=== PATIENT | female | born 1975 | race American Indian/Alaskan Native ===

== ENCOUNTER 2017-12-14 09:20 | Emergency (ER) | payer MEDICAID, OTHER, SELFPAY ==
--- NOTE | 2017-12-14 10:02 | ED.CPR ---
HPI - CPR General Chief Complaint: Cardiac Arrest/CPR Stated Complaint: cpr Source: EMS Mode of arrival: EMS Limitations: physical limitation History of Present Illness HPI narrative: Patient has a difficult story to follow. Initial report suggests she was last seen normal at 9pm last evening and then family heard a commotion this morning at 730 am. They report she may have smoked oxycodone. There is also suggestion that maybe she got her kids off to school this morning. No recent illness or injury. Found down and EMS notified. CPR started when rn night arrived. Upon arrival of and [facility] patient was found in a PA arrest and CPR was continued. All in all patient received epinephrine 1 mg x6 prior to her arrival. She did have 2 brief episodes of VFib which were subsequently shocked. Patient received amiodarone 300 mg bolus followed by 150 bolus on the 2nd occurrence. She had peripheral line and a left tibial IO. Airway secured a Isai airway. End-tidal is in the 30s on her arrival with CPR. Code blue activated prior to arrival. All necessary participants in place prior to her arrival. Related Data Previous Rx's Medication Instructions Recorded phenytoin sodium extended 0 PO QDAY #90 cap 02/14/17 [Dilantin Extended] sulfamethoxazole-trimethoprim 1 tab PO BID #10 tab 10/08/17 clonazepam 0.5 mg PO BID #60 tab 10/23/17 Allergies Allergy/AdvReac Type Severity Reaction Status Date / Time codeine [CODEINE] Allergy Intermediate ITCHING Unverified 11/14/17 12:21 meperidine [From DEMEROL] Allergy Intermediate ITCHING Unverified 11/14/17 12:21 hydrocodone [HYDROCODONE] Allergy Unknown Unverified 11/20/17 00:18 Review of Systems Review of Systems Patient is unable to participate in review of systems due to endotracheal tube Constitutional Reports as per HPI Exam Narrative Exam Narrative: Intubated, active CPR. Const General: patient mechanically ventilated Nutritional Appearance: average body habitus [facility] Head: normal to inspection, No hematoma and No laceration Ears: hearing grossly normal bilaterally Nose: external nose normal Face and sinus: normal facial exam Mouth: oral mucosae normal Throat: posterior oropharynx normal Eyes Eyelids: eyelids normal Conjunctivae: conjunctivae normal Pupils: dilated and fixed Neck Neck: normal visual inspection Chest Chest: normal inspection of the chest Other: No obvious trauma Resp Auscultation: clear to auscultation bilaterally Other: Mechanically ventilated. Cardio Pulses: radial pulses not present GI Inspection: normal to inspection Skin General: no rashes or lesions noted, No jaundice and No petechiae Neuro General: not alert, not awake and not oriented x3 Extrem General: normal to inspection [facility] Surgical History Status post tubal ligation (12/24/15) MDM - Cardiac Arrest/CPR Lab Data Result diagrams: 12/14/17 09:27 12/14/17 09:27 Lab Results 12/14/17 Range/Units 09:27 Sodium 135 L (137-145) mmol/L Potassium 3.9 (3.4-5.1) mmol/L Chloride 99.0 (98-107) mmol/L Carbon Dioxide 16.0 L (22-32) mmol/L BUN 6.0 L (7-17) mg/dL Creatinine 1.10 H (0.52-1.04) mg/dL Estimated GFR 55.0 L (>60) mL/min BUN/Creatinine Ratio 5.5 L (6-22) Glucose 416 H (70-100) mg/dL Calcium 7.5 L (8.4-10.2) mg/dL Course Orders Ordered: ED Orders 12/14/17 09:27 Basic Metabolic Panel Stat 12/14/17 09:57 Complete Blood Count AUTO DIFF Stat Reevaluation(s) Reevaluation #1: Immediately on arrival patient was transferred to our cart and monitors. She was in a PEA in the 80s. CPR resumed. Epinephrine administered. Airway swab and endotracheal tube placed by EMS. Confirmed by myself with glide scope. Amiodarone drip administered. Bicarb administered given potential for lengthy down time. Multiple cycles of CPR/brief pulse checks. We visited all H's / T's and no reversible cause noted. Critical Care Time Critical Care Time: Yes Total Critical Care Time: 45 Attestation: Critical care time is separate from other billable procedures. This critical care time includes consultation with family and other consulting doctors, review of records, and interpretation of data from labs, EKGs, imaging, etc. Discharge Plan Departure Patient Disposition: Prescriptions: No Action phenytoin sodium extended [Dilantin Extended] 100 MG capsule PO QDAY Qty: 90 RF: 11 sulfamethoxazole-trimethoprim 800 MG/160 MG tablet 1 tab PO BID Qty: 10 RF: 0 clonazepam 0.5 MG tablet 0.5 mg PO BID Qty: 60 RF: 1
[2017-12-14 10:07] LABS: BUN Creatinine Ratio 5.5 (6-22); Calcium 7.5 mg/dL (8.4-10.2); Glucose 416 mg/dL (70-100)
[2017-12-14 10:09] LABS: HEMOLYSIS 99 (0-50); Sodium 135 mmol/L (137-145)
[2017-12-14 10:10] LABS: Hematocrit 38.7 % (36-46); Hemoglobin 12.2 g/dL (12.0-16.0); Mean Corpuscular HGB Conc 31.6 % (30-36); Mean Corpuscular Hemoglobin 27.5 PG (26-34); Mean Corpuscular Volume 87.1 fL (80-100); Platelet Count 187 X10^3/uL (150-400); Potassium 3.9 mmol/L (3.4-5.1); Red Blood Cell Count 4.44 X10^6/uL (4.0-5.2); Red Cell Distribution Width 14.3 % (11.6-14.8)
[2017-12-14 10:15] LABS: Add Manual Diff / Slide Review YES
--- NOTE | 2017-12-14 10:25 | ED_ITS ---
HPI - CPR General Chief Complaint: Cardiac Arrest/CPR Stated Complaint: cpr Source: EMS Mode of arrival: EMS Limitations: physical limitation History of Present Illness HPI narrative: Patient has a difficult story to follow. Initial report suggests she was last seen normal at 9pm last evening and then family heard a commotion this morning at 730 am. They report she may have smoked oxycodone. There is also suggestion that maybe she got her kids off to school this morning. No recent illness or injury. Found down and EMS notified. 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 Upon arrival of and [facility] patient was found in a PA arrest and CPR was continued. All in all patient received epinephrine 1 mg x6 prior to her arrival. She did have 2 brief episodes of VFib which were subsequently shocked. Patient received amiodarone 300 mg bolus followed by 150 bolus on the 2nd occurrence. She had peripheral line and a left tibial IO. Airway secured a Isai airway. End-tidal is in the 30s on her arrival with CPR. Code blue activated prior to arrival. All necessary participants in place prior to her arrival. Related Data Previous Rx's Medication Instructions Recorded phenytoin sodium extended 0 PO QDAY #90 cap 02/14/17 [Dilantin Extended] sulfamethoxazole-trimethoprim 1 tab PO BID #10 tab 10/08/17 clonazepam 0.5 mg PO BID #60 tab 10/23/17 Allergies Allergy/AdvReac Type Severity Reaction Status Date / Time codeine [CODEINE] Allergy Intermediate ITCHING Unverified 11/14/17 12:21 meperidine [From DEMEROL] Allergy Intermediate ITCHING Unverified 11/14/17 12:21 hydrocodone [HYDROCODONE] Allergy Unknown Unverified 11/20/17 00:18 Review of Systems Review of Systems Patient is unable to participate in review of systems due to endotracheal tube Constitutional Reports as per HPI Exam Narrative Exam Narrative: Intubated, active CPR. Const General: patient mechanically ventilated Nutritional Appearance: average body habitus [facility] Head: normal to inspection, No hematoma and No laceration Ears: hearing grossly normal bilaterally Nose: external nose normal Face and sinus: normal facial exam Mouth: oral mucosae normal Throat: posterior oropharynx normal Eyes Eyelids: eyelids normal Conjunctivae: conjunctivae normal Pupils: dilated and fixed Neck Neck: normal visual inspection Chest Chest: normal inspection of the chest Other: No obvious trauma Resp Auscultation: clear to auscultation bilaterally Other: Mechanically ventilated. Cardio Pulses: radial pulses not present GI Inspection: normal to inspection Skin General: no rashes or lesions noted, No jaundice and No petechiae Neuro General: not alert, not awake and not oriented x3 Extrem General: normal to inspection [facility] Surgical History Status post tubal ligation (12/24/15) MDM - Cardiac Arrest/CPR Lab Data Result diagrams: 12/14/17 09:27 12/14/17 09:27 Lab Results 12/14/17 Range/Units 09:27 Sodium 135 L (137-145) mmol/L Potassium 3.9 (3.4-5.1) mmol/L Chloride 99.0 (98-107) mmol/L Carbon Dioxide 16.0 L (22-32) mmol/L BUN 6.0 L (7-17) mg/dL Creatinine 1.10 H (0.52-1.04) mg/dL Estimated GFR 55.0 L (>60) mL/min BUN/Creatinine Ratio 5.5 L (6-22) Glucose 416 H (70-100) mg/dL Calcium 7.5 L (8.4-10.2) mg/dL Course Orders Ordered: ED Orders 12/14/17 09:27 Basic Metabolic Panel Stat 12/14/17 09:57 Complete Blood Count AUTO DIFF Stat Reevaluation(s) Reevaluation #1: Immediately on arrival patient was transferred to our cart and monitors. She was in a PEA in the 80s. CPR resumed. Epinephrine administered. Airway swab and endotracheal tube placed by EMS. Confirmed by myself with glide scope. Amiodarone drip administered. Bicarb administered given potential for lengthy down time. Multiple cycles of CPR/brief pulse checks. We visited all H's / T's and no reversible cause noted. Critical Care Time Critical Care Time: Yes Total Critical Care Time: 45 Attestation: Critical care time is separate from other billable procedures. This critical care time includes consultation with family and other consulting doctors, review of records, and interpretation of data from labs, EKGs, imaging, etc. Discharge Plan Departure Patient Disposition: Prescriptions: No Action phenytoin sodium extended [Dilantin Extended] 100 MG capsule PO QDAY Qty: 90 RF: 11 sulfamethoxazole-trimethoprim 800 MG/160 MG tablet 1 tab PO BID Qty: 10 RF: 0 clonazepam 0.5 MG tablet 0.5 mg PO BID Qty: 60 RF: 1
--- NOTE | 2017-12-14 10:27 | PC.NURSE ---
Patient given post-mortem bath in order for children to see patient.
--- NOTE | 2017-12-14 10:28 | PC.NURSE ---
REFER TO PAPERCHARTING FOR ALL DOCUMENTATION.
--- NOTE | 2017-12-14 10:35 | PC.NURSE ---
Bilingual Office Assistant's Office notified.
[2017-12-14 10:51] LABS: Neutrophils Absolute Manual 14260 /uL (3000-5900); Smudge Cells 1+; Total Cells Counted 100
[2017-12-14 10:52] LABS: Anisocytosis 1+; Poikilocytosis 1+
--- NOTE | 2017-12-14 13:00 | PC.NURSE ---
home stager at bedside.
--- NOTE | 2017-12-14 13:40 | PC.NURSE ---
pt transfered to [facility]
== END 2017-12-14 12:40 | disposition expired ==
LOC: ED 10:34
PROVIDERS: Emergency Provider Emergency Medicine; PCP Family Medicine
DX: I46.9 Cardiac arrest, cause unspecified (principal)
CPT/HCPCS: 36415; 80048; 85025; 92950; 94770; 94799; 96374; 96375; 99281; 99285; 99291; 99292